=== PATIENT | male | born 1995 | race Caucasian/White ===

== ENCOUNTER → 2016-08-11 | Outpatient (CLI) | payer OTHER ==
--- NOTE | 2016-08-11 17:17 | DX ---
Cervical Spine, Two Views Indication: Neck pain. Technique: Upright AP and lateral views Comparison: None Findings: The occiput through T1 is anatomically aligned. Disk heights are well preserved. The spina l canal is congenitally narrow. Prevertebral soft tissues are normal. Lung apices are clear. Impression: 1. Congenitally narrow cervical canal. 2. No arthropathy.
--- NOTE | 2016-08-11 17:37 | DX ---
Lumbar Spine, Two Views 1600 hours Indication: Low back pain for 6 months Comparison: None Technique: Upright AP and lateral views. Findings: Five nonrib-bearing lumbar vertebral bodies are anatomically aligned. No syndesmophytes or erosions. Small benign Schmorl's nodes involve the anterosuperior endplate of L3 and L4. No compress ion fracture or pars defect. Disk heights are well preserved. Sclerosis is present along the lower bunch lf of bilateral sacroiliac joints. Impression: 1. Minimal degenerative disk disease at L2-L3 and L3-L4 evidenced by Schmorl's nodes. 2. Suspect sacroiliitis. Dedicated views of the sacroiliac joints and/or noncontrast MRI of SI joints would help characterize the joint space and marginal erosions.
== END ==
LOC: BMCIMAGING 15:58
PROVIDERS: ATTEND Internal Medicine Rheumatology
DX: M54.5 Low back pain (principal); M53.3 Sacrococcygeal disorders, not elsewhere classified

== ENCOUNTER → 2018-02-24 | Outpatient (CLI) | payer OTHER | LOC: BMCIMAGING 16:55 | PROVIDERS: ATTEND Internal Medicine Rheumatology | DX: M46.1 Sacroiliitis, not elsewhere classified (principal) ==